=== PATIENT | female | born 1980 | race Caucasian/White ===

== ENCOUNTER 2025-02-09 17:21 | Emergency (ER) | payer SELFPAY ==
[2025-02-09 18:49] LABS: Basophils # (A) 0.09 10*3/uL (0.00-0.10); Basophils % (A) 1.1 %; Eosinophils # (A) 0.12 10*3/uL (0.04-0.35); Eosinophils % (A) 1.4 %; HCT 35.0 % (37.2-46.3); HGB 11.8 g/dL (12.0-15.0); Lymphocytes # (A) 1.69 10*3/uL (0.90-5.00); Lymphocytes % (A) 20.2 %; MCH 34.0 pg (27.0-32.0); MCHC 33.7 g/dL (32.0-37.0); MCV 100.9 fL (80.0-97.0); Monocytes # (A) 0.57 10*3/uL (0.20-1.00); Monocytes % (A) 6.8 %; Neutrophils # (A) 5.86 10*3/uL (1.80-7.70); Neutrophils % (A) 70.1 %; Platelet Count 286 10*3/uL (140-440); RBC 3.47 10*6/uL (4.10-5.20); RDW 12.6 % (11.5-14.5); WBC 8.36 10*3/uL (4.50-10.00)
[2025-02-09 19:06] LABS: ALT 19 U/L (4-34); African American GFR (CKD) >90 (>60 ml/min/1.73 sqM); Albumin 4.3 g/dL (3.5-5.0); Anion Gap 8 mmol/L; Blood Urea Nitrogen 8 mg/dL (7-17); Calcium 9.5 mg/dL (8.4-10.2); Carbon Dioxide 24 mmol/L (22-30); Chloride 106 mmol/L (98-107); Glucose 86 mg/dL (74-99); Non-African American GFR(CKD) >90 (>60 ml/min/1.73 sqM); Sodium 138 mmol/L (137-145); Total Protein 6.6 g/dL (6.3-8.2)
[2025-02-09 19:15] LABS: NT-Pro-B-Type Natriuretic Pept 89 pg/mL
[2025-02-09 19:24] LABS: AST 30 U/L (14-36); Alkaline Phosphatase 40 U/L (38-126); Potassium 4.1 mmol/L (3.5-5.1)
--- NOTE | 2025-02-09 19:27 | US ---
EXAMINATION TYPE: US venous doppler duplex LE BI DATE OF EXAM: 02/09/2025 7:04 PM COMPARISON: NONE CLINICAL INDICATION: Female, 44 years old with history of swelling; patient states bilateral leg swel ling since friday. no hx dvt. not on thinners TECHNIQUE: The lower extremity deep venous system is examined utilizing real time linear array sonog may with graded compression, doppler sonography and color-flow sonography. Grayscale, color doppler , spectral doppler imaging performed of the deep veins of the lower extremities FINDINGS: SIDE PERFORMED: Bilateral VESSELS IMAGED: Common Femoral Vein Deep Femoral Vein Greater Saphenous Vein * Femoral Vein Popliteal Vein Small Saphenous Vein * Proximal Calf Veins (* superficial vessels) Right Leg: Negative for DVT; There is normal flow, compressibility, vascular waveforms. Left Leg: Negative for DVT; There is normal flow, compressibility, vascular waveforms. IMPRESSION: No sonographic evidence for deep vein thrombosis. [facility], , 02/09/2025 7:25 PM
--- NOTE | 2025-02-09 19:39 | ED ---
Extremity Problem HPI - General Chief complaint: Extremity Problem,Nontraumatic Stated complaint: bilateral leg swelling Time Seen by Provider: 02/09/25 17:45 Source: patient Mode of arrival: ambulatory Limitations: no limitations - History of Present Illness Initial comments: 44-year-old female sent here from [facility] for lower extremity swell ing. Patient is having bilateral lower extremity swelling present for the past few days. Seems to be getting worse. She is having no difficulty breathing or any chest pain. No history of CHF. No history of blood clots. No oral contraceptive use, recent surgery, recent long travel. Her last drink was on the at [facility] for alcoholism. No injury or trauma. - Related Data Allergies Allergy/AdvReac Type Severity Reaction Status Date / Time No Known Allergies Allergy Verified 02/09/25 17:42 Review of Systems ROS Statement: Those systems with pertinent positive or pertinent negative responses have been documented in the HPI. ROS Other: All systems not noted in ROS Statement are negative. Past Medical History Past Medical History: Asthma, GERD/Reflux History of Any Multi-Drug Resistant Organisms: None Reported Past Surgical History: Orthopedic Surgery Additional Past Surgical History / Comment(s): tumor removed from r. breast, kidney stone removal Past Psychological History: No Psychological Hx Reported Smoking Status: Current every day smoker Past Alcohol Use History: Abuse, Daily Past Drug Use History: None Reported General Exam Limitations: no limitations General appearance: alert, in no apparent distress Head exam: Present: atraumatic, normocephalic, normal inspection Eye exam: Present: normal appearance, EOMI Neck exam: Present: normal inspection. Absent: meningismus Respiratory exam: Present: normal lung sounds bilaterally. Absent: respiratory distress, wheezes, rales, rhonchi, stridor Cardiovascular Exam: Present: regular rate, normal rhythm, normal heart sounds. Absent: systolic murmur, diastolic murmur, rubs, gallop, clicks Extremities exam: Present: pedal edema Neurological exam: Present: alert, oriented X3 Psychiatric exam: Present: normal affect, normal mood Skin exam: Present: warm, dry, intact. Absent: rash Course Vital Signs 02/09/25 17:39 Temperature 98.6 F Pulse Rate 83 Respiratory 18 Rate Blood Pressure 106/66 O2 Sat by Pulse 99 Oximetry Medical Decision Making - Medical Decision Making Was pt. sent in by a medical professional or institution (ARELY Raymond, PUBLIC HEALTH SPECIALIST, urgent care, hospital, or longterm...) When possible be specific @ -No Did you speak to anyone other than the patient for history (EMS, parent, family, police, friend...)? What history was obtained from this source @ -No Did you review nursing and triage notes (agree or disagree)? Why? @ -I reviewed and agree with nursing and triage notes Were old charts reviewed (outside hosp., previous admission, EMS record, old EKG, old radiological studies, urgent care reports/EKG's, longterm records)? Report findings @ -No old charts were reviewed Differential Diagnosis (chest pain, altered mental status, abdominal pain women, abdominal pain men, vaginal bleeding, weakness, fever, dyspnea, syncope, headache, dizziness, GI bleed, back pain, seizure, CVA, palpatations, mental health, musculoskeletal)? @ -Differential Musculoskeletal Muscular strain, contusion, ligament sprain, fracture, arthritis, septic arthritis, bursitis, cellulitis, muscle spasm, nerve compression, DVT, arterial occlusion, herpes zoster, electrolyte abnormality, tumor.... This is not meant to be in all inclusive list EKG interpreted by me (3pts min.). @ -As above X-rays interpreted by me (1pt min.). @ -None done CT interpreted by me (1pt min.). @ -None done U/S interpreted by me (1pt. min.). @ -Ultrasound negative for DVT What testing was considered but not performed or refused? (CT, X-rays, U/S, labs)? Why? @ -None What meds were considered but not given or refused? Why? @ -None Did you discuss the management of the patient with other professionals (professionals i.e. ARELY Raymond, PUBLIC HEALTH SPECIALIST, lab, RT, psych nurse, home health care social worker, job coach, teacher, chief security and safety officer, employment evaluator/case manager)? Give summary @ -No Was smoking cessation discussed for >3mins.? @ -No Was critical care preformed (if so, how long)? @ -No Were there social determinants of health that impacted care today? How? (Homelessness, low income, unemployed, alcoholism, drug addiction, transportation, low edu. Level, literacy, decrease access to med. care, longterm, rehab)? @ -No Was there de-escalation of care discussed even if they declined (Discuss DNR or withdrawal of care, Hospice)? DNR status @ -No What co-morbidities impacted this encounter? (DM, HTN, Smoking, COPD, CAD, Cancer, CVA, ARF, Chemo, Hep., AIDS, mental health diagnosis, sleep apnea, morbid obesity)? @ -None Was patient admitted / discharged? Hospital course, mention meds given and route, prescriptions, significant lab abnormalities, going to OR and other pertinent info. @ -44-year-old female presenting with chief complaint of bilateral lower extremity swelling. No chest pain or difficulty breathing. Sent from [facility]. Lab work requires no immediate action. BNP is 89. Ultrasound negative for DVT. Vital signs are stable. Patient is resting comfortably showing no acute signs of distress. Educated on today's findings. Educated on compression socks and elevation. Follow-up with PCP. Report back to ER with any new or worsening symptoms. Discussed return parameters and answered all questions. Patient conveyed verbal understanding and agreed to the plan. I discussed this case in detail with my attending Dr. Ascencio Undiagnosed new problem with uncertain prognosis? @ -No Drug Therapy requiring intensive monitoring for toxicity (Heparin, Nitro, Insulin, Cardizem)? @ -No Were any procedures done? @ -No Diagnosis/symptom? @ -Lower extremity edema Acute, or Chronic, or Acute on Chronic? @ -Acute Uncomplicated (without systemic symptoms) or Complicated (systemic symptoms)? @ -Uncomplicated Side effects of treatment? @ -No Exacerbation, Progression, or Severe Exacerbation? @ -No Poses a threat to life or bodily function? How? (Chest pain, USA, MD, pneumonia, PE, COPD, DKA, ARF, appy, cholecystitis, CVA, Diverticulitis, Homicidal, Suicidal, threat to staff... and all critical care pts) @ -Unlikely - Lab Data Result diagrams: 02/09/25 18:34 02/09/25 18:34 Lab Results 02/09/25 02/09/25 Range/Units 18:34 18:34 WBC 8.36 (4.50-10.00) 10*3/uL RBC 3.47 L (4.10-5.20) 10*6/uL Hgb 11.8 L (12.0-15.0) g/dL Hct 35.0 L (37.2-46.3) % MCV 100.9 H (80.0-97.0) fL MCH 34.0 H (27.0-32.0) pg MCHC 33.7 (32.0-37.0) g/dL Plt Count 286 (140-440) 10*3/uL MPV 12.1 (9.5-12.2) fL Immature Gran % (Auto) 0.4 % Neutrophils % 70.1 % Lymphocytes % 20.2 % Monocytes % 6.8 % Eosinophils % 1.4 % Basophils % 1.1 % Immature Gran # 0.03 (0.00-0.04) 10*3/uL Neutrophils # 5.86 (1.80-7.70) 10*3/uL Lymphocytes # 1.69 (0.90-5.00) 10*3/uL Monocytes # 0.57 (0.20-1.00) 10*3/uL Eosinophils # 0.12 (0.04-0.35) 10*3/uL Basophils # 0.09 (0.00-0.10) 10*3/uL Sodium 138 (137-145) mmol/L Potassium 4.1 (3.5-5.1) mmol/L Chloride 106 (98-107) mmol/L Carbon Dioxide 24 (22-30) mmol/L Anion Gap 8 mmol/L BUN 8 (7-17) mg/dL Creatinine 0.68 (0.52-1.04) mg/dL Est GFR (CKD-EPI)AfAm >90 (>60 ml/min/1.73 sqM) Est GFR (CKD-EPI)NonAf >90 (>60 ml/min/1.73 sqM) Glucose 86 (74-99) mg/dL Calcium 9.5 (8.4-10.2) mg/dL Total Bilirubin 0.4 (0.2-1.3) mg/dL AST 30 (14-36) U/L ALT 19 (4-34) U/L Alkaline Phosphatase 40 (38-126) U/L NT-Pro-B Natriuret Pep 89 pg/mL Total Protein 6.6 (6.3-8.2) g/dL Albumin 4.3 (3.5-5.0) g/dL Disposition Clinical Impression: Lower extremity edema Disposition: HOME SELF-CARE Condition: Good Instructions (If sedation given, give patient instructions): Leg Edema (ED) Additional Instructions: Follow-up with PCP. Report back to ER with any new or worsening symptoms. Use compression stockings and elevate the feet when possible. Is patient prescribed a controlled substance at d/c from ED?: No Referrals: None,Stated [Primary Care Provider] - 1-2 days [facility] [Provider Group] - 1-2 days [facility] [Provider Group] - 1-2 days Forms: Area PCPs Time of Disposition: 19:38
[2025-02-09 20:52] VITALS: BP 110/68; PULSE 86; RESP 19; TEMP 98.5
== END 2025-02-09 19:58 | disposition home or self-care (01) ==
LOC: EC 17:21
DX: R60.0 Localized edema (principal); F17.200 Nicotine dependence, unspecified, uncomplicated
CPT/HCPCS: 36415; 80053; 83880; 85025; 93970; 99283